=== PATIENT | male | born 1950 | race Caucasian/White ===

== ENCOUNTER → 2016-11-29 | Outpatient (CLI) | payer OTHER ==
[~2016-11-29] MED LIST: CALCCAP4 PO; HYDR1CAP85 PO; LUTE6CAP PO; MECL1CHW4 PO; MULT-506 PO; OMEG12006 PO
[2016-11-29 14:53] LABS: BASO % 0.6 %; BASO ABS # 0.04 K/uL (0-0.2); COMPLETE YES; EOS % 4.1 %; HEMATOCRIT 42.1 % (42-52); IG% 0.2 %; LYMPH % 20.5 %; LYMPH ABS # 1.31 K/uL (1.2-3.4); MEAN CELL VOLUME 91.9 fL (80-100); MEAN CORPUSCULAR HEMOGLOBIN 31.7 pg (25-34); MEAN CORPUSCULAR HGB CONC 34.4 g/dl (32-36); MEAN PLATELET VOLUME 10.9 fL (7.4-10.4); MONO % 14.7 %; NEUT % 59.9 %; PLATELET COUNT 237 K/uL (130-400); RED BLOOD COUNT 4.58 M/uL (4.7-6.1)
[2016-11-29 15:22] LABS: BLOOD UREA NITROGEN 18 mg/dl (7-18); BUN/CREATININE RATIO 24.5 (10-20); CALCIUM 8.3 mg/dl (8.5-10.1); CARBON DIOXIDE 27 mmol/L (21-32); CHLORIDE 109 mmol/L (98-107); CREATININE 0.72 mg/dl (0.60-1.40); GLUCOSE 103 mg/dl (70-99); POTASSIUM 3.9 mmol/L (3.5-5.1); SODIUM 142 mmol/L (136-145)
[2016-11-29 15:33] LABS: THYROID STIMULATING HORMONE 0.481 uIu/ml (0.300-4.500)
[2016-11-29 16:16] LABS: LYME DISEASE AB IGG NEG (NEG); LYME DISEASE AB IGM NEG (NEG)
== END | disposition home or self-care (01) ==
LOC: C.LAB 12:48
PROVIDERS: ATTEND Internal Medicine Geriatric Medicine
DX: Z00.00 Encounter for general adult medical examination without abnormal findings (principal); Z51.81 Encounter for therapeutic drug level monitoring; M81.0 Age-related osteoporosis without current pathological fracture; Z79.01 Long term (current) use of anticoagulants; I80.3 Phlebitis and thrombophlebitis of lower extremities, unspecified; W57.XXXA Bitten or stung by nonvenomous insect and other nonvenomous arthropods, initial encounter

== ENCOUNTER → 2017-01-06 | Outpatient (CLI) | payer OTHER ==
[2017-01-06 14:20] LABS: BLOOD UREA NITROGEN 13 mg/dl (7-18); BUN/CREATININE RATIO 17.6 (10-20); CALCIUM 8.5 mg/dl (8.5-10.1); CARBON DIOXIDE 25 mmol/L (21-32); CHLORIDE 107 mmol/L (98-107); CREATININE 0.75 mg/dl (0.60-1.40); GLUCOSE 93 mg/dl (70-99); MAGNESIUM 2.3 mg/dl (1.8-2.4); POTASSIUM 4.3 mmol/L (3.5-5.1); SODIUM 139 mmol/L (136-145)
[2017-01-06 14:25] LABS: PHOSPHORUS 3.1 mg/dl (2.5-4.9)
== END | disposition home or self-care (01) ==
LOC: C.LABBC 10:34
PROVIDERS: ATTEND Internal Medicine Geriatric Medicine
DX: Z00.00 Encounter for general adult medical examination without abnormal findings (principal); M81.0 Age-related osteoporosis without current pathological fracture; E83.51 Hypocalcemia; M62.81 Muscle weakness (generalized)

== ENCOUNTER → 2017-02-08 | Outpatient (CLI) | payer OTHER | END | disposition home or self-care (01) | LOC: C.MAMM 11:14 | PROVIDERS: ATTEND Internal Medicine Geriatric Medicine | DX: M81.0 Age-related osteoporosis without current pathological fracture (principal) ==

== ENCOUNTER 2022-05-11 14:06 | Inpatient (IN) ==
[2022-05-11] MEDS ORDERED: ONDANSETRON INJ 2 MG/ML 2 ML VIAL IV STA (14:15)
[2022-05-11] MEDS ORDERED: SODIUM CHLORIDE 0.9% 1000ML 1,000 ML IV STA (14:15)
[2022-05-11] MEDS ORDERED: cefOXitin 2,000 MG/60 ML BAG IV STA (14:15)
--- NOTE | 2022-05-11 14:30 | Emergency Department Note ---
Impression & Plan SBO (small bowel obstruction), Vomiting ED Provider Note NAME: ANGIE LONDONO AGE: 71 SEX: M : 1950 ARRIVES VIA: Walk-In INFORMANT: Patient, ED PROVIDER(S): Jimmie Kaur DO CHIEF COMPLAINT: Diarrhea HPI: The patient is a 71-year-old male who presented to the emergency department for an evaluation of the diarrhea. The patient is noted some nausea but no specific vomiting. He is noticed mild abdominal distention. He denies having any fever. He denies having any chest pain or difficulty breathing. He called his primary care physician with these complaints and was sent for a CAT scan of the abdomen and pelvis. He was told to go to the emergency department because of the possibility of C. difficile. The patient tested positive for C. difficile in March of this year. He was treated with a 10-day course of vancomycin. When he started having loose bowel movements again he thought it was possible that the C. difficile has returned. The patient denies having any previous surgeries on his abdomen. He denies having any fever or headache. ROS: See above HPI for pertinent positives & negatives. A total of 10 systems reviewed and were otherwise negative. PAST MEDICAL HISTORY: See Below PAST SURGICAL HISTORY: See Below FAMILY HISTORY: See Below SOCIAL HISTORY: See Below HOME MEDICATIONS: See Below ALLERGIES: See Below VITALS: See Below PHYSICAL EXAMINATION: GENERAL: Patient is awake alert in no acute distress patient is resting comfortably and showing no signs of anxiety EYES: The conjunctivae are clear. The pupils are round and reactive. EARS, NOSE, MOUTH AND THROAT: The nose is without any evidence of any deformity. Mucous membranes are moist. Tongue is midline. NECK: The neck is nontender and supple. RESPIRATORY: Normal respiratory effort is noted there is no evidence of wheezing rhonchi or rales CARDIOVASCULAR: Regular rate and rhythm noted there no murmurs rubs or gallops normal S1 normal S2. GASTROINTESTINAL: The abdomen is distended but nontender. There is no guarding rigidity appreciated. MUSCULOSKELETAL/EXTREMITIES: There is no evidence of gross deformity full range of motion is noted in the hips and shoulders. SKIN: There is no obvious evidence of any rash. There are no petechiae, pallor or cyanosis noted. NEUROLOGIC: Patient is awake alert and oriented x3. Gait was steady. MEDICAL DECISION MAKING: The patient is a 71-year-old male who presented to the emergency department for an evaluation of abdominal complaints as well as diarrhea. The patient was recently diagnosed with C. difficile colitis. He was treated with a full course of vancomycin orally. The patient started having loose bowel movements again and had a CT ordered as an outpatient by his primary care physician. The CT appears to be consistent with a bowel obstruction. The patient was sent to the emergency department for further evaluation. I discussed the patient's laboratory and radiographic studies with him. I did independently review the patient's CT that was obtained this morning. I discussed the patient's conditi on with the on-call general surgeon. The [facility] hospitalist was also notified about the patient. The patient was treated with IV fluids and IV antibiotics. He also had an NG tube placed by nursing. He did have an episode of emesis. The patient had a very dilated gastric shadow on CT. I do feel the patient's condition could benefit from NG tube to suction. Triage Nursing notes reviewed. Prior medical records reviewed Vital Signs: reviewed and remarkable for no significant abnormalities Differential diagnosis: Gastroenteritis, food borne illness, infections, diverticulitis, inflammatory bowel disease, obstruction, GI bleed, biliary pathology, volvulus, as well as other pathologies. ER treatment provided: See below Diagnostics interpreted by me: ECG: EKG was obtained in the emergency department. My interpretation is normal sinus rhythm at 75 bpm. There is no ectopy. Poor R wave progression was noted. There is a nonspecific interventricular conduction delay. No previous tracing was available. Cardiac Monitoring: An order was placed for continuous cardiac monitoring. The monitor shows a rate of 71 bpm with sinus rhythm. Laboratory studies: As stated above and show below. Imaging studies: See below. Radiographic imaging was reviewed by myself Consultation(s): I discussed this case with Esther Bradley who is on-call for general surgery. Dr. Maurer was notified about the patient. He will evaluate the patient in the emergency department. Past Med/Surg History Medical History Allergic rhinitis BPH (benign prostatic hyperplasia) C. difficile colitis (~03/2022) Cyst of finger GERD (gastroesophageal reflux disease) Hypotension Low back pain bulging lumbar disc Near syncope Osteoarthritis Osteoporosis Osteopenia on a bone density summer 2020 T-score of -2.1 Right wrist pain Sensorineural hearing loss of both ears Sleep apnea mild, no device Superficial thrombophlebitis lower right leg Using aspirin 81 mg daily Testicular pain Tinnitus, bilateral Surgical History H/O colonoscopy History of esophagogastroduodenoscopy (EGD) History of removal of cyst left hand, on finger---under local Family History Mother Hypertension Brother Macular degeneration Grandfather (Maternal) Family history of diabetes mellitus Family hx of colon cancer Other No family history of adverse response to anesthesia Denies family history of Ovarian cancer Prostate cancer Myocardial infarction Breast cancer Social History Smoking Status: Never smoker Second Hand Exposure: No (father smoked); Hx Alcohol Use: Yes Alcohol type: beer and wine Alcohol Intake Frequency Comment: 1/day Hx Substance Use: No Preferred Language: Malawian Communication Ability: Effective Visual Impairment: No Limitations Hearing Ability: Normal [employer] Supervisor Required: No Beliefs That Will Affect Care: None marital status: Current Living Situation: Spouse current occupational status: retired Feels Safe at Home: Yes Childhood Exposure to Second-Hand Smoke: Yes Dental Care, Regularly: Yes Physical Activity Frequency: Daily Physical Activity Frequency Comment: walk or back exercises Seatbelt Use: always Sunscreen Use: Yes Assistive Devices: Glasses Allergies Allergies Allergy/AdvReac Type Severity Reaction Status Date / Time No Known Allergies Allergy Verified 04/19/22 13:58 Home Meds Home Medications Medication Instructions Recorded Confirmed ascorbic acid (vitamin C) 500 mg 500 mg PO QPM 11/25/17 04/19/22 tablet (Vitamin C) aspirin 81 mg tablet,delayed 81 mg PO QAM 11/25/17 04/19/22 release (Aspir-) lutein 6 mg tablet 6 mg PO BID 11/25/17 04/19/22 multivitamin 1 tab PO QDL 11/25/17 04/19/22 omega 0-loi-oqp-fish oil 1,000 mg 1,000 mg PO QDL 11/25/17 04/19/22 (120 mg-180 mg) capsule (Fish Oil) fluticasone propionate 50 1 sprays intranasal HS 03/31/19 04/19/22 mcg/actuation nasal spray,suspension hydroxyzine pamoate 25 mg capsule 25 mg PO HS PRN Itching 04/06/19 04/19/22 (Vistaril) methylcellulose (with sugar) oral 1 tbsp PO QAM 04/06/19 04/19/22 powder (Citrucel (sucrose) oral powder) [id number]-[id number] comb 40 cap PO BID 01/14/20 04/19/22 mg-17 mcg-10 mg-63 mg-33mg capsule (Urinozinc Prostate Formula) cholecalciferol (vitamin D3) 50 2,000 unit PO DAILY 10/23/20 04/19/22 mcg (2,000 unit) tablet mecobalamin (vitamin B12) 1,000 1,000 mcg sublingual DAILY 10/23/20 04/19/22 mcg disintegrating tablet,sublingual calcium carbonate 600 mg calcium 600 mg PO BID 01/12/22 04/19/22 (1,500 mg) tablet (Calcium) vyfywdbh-myi-oferny 5 mg-zeaxanth cap PO 01/12/22 04/19/22 1 mg-bilberry 7.5 mg-herbal capsule (Macular Health Formula) Previous Rx's Medication Instructions Recorded tadalafil 5 mg tablet 5 mg PO DAILY #30 tabs 02/17/22 Lactobacillus acidophilus 1 1,000 mmu cells PO DAILY #30 caps 04/19/22 billion cell capsule vancomycin 125 mg capsule 125 mg PO QID 14 days #56 caps 05/11/22 Results & Data (ED) Vital Signs Vital Signs - 24 hr 05/11/22 14:08 05/11/22 15:16 05/11/22 15:16 Temperature 36.7 C Temperature Source Oral Pulse Rate 88 Pulse Rate [Apical] 71 Respiratory Rate 21 18 Respiratory Effort / Characteristics Non-Labored Non-Labored Respiratory Depth Normal Normal Respiratory Pattern Regular Blood Pressure 122/83 Blood Pressure [Right Arm] 118/78 Blood Pressure Mean 96 Blood Pressure Mean [Right Arm] 91 Pulse Oximetry 94 94 95 Oxygen Delivery Method Room Air Room Air Room Air Sepsis Recent Fever Within 48 Hours No Sepsis New/Unexplained Change in Mental Status N/A Sepsis Action Taken by Nursing No Action Required Home Medications Current Medication List: was personally reviewed by me Laboratory Data Attestation: I reviewed the patient's lab results. 05/11/22 14:30 05/11/22 14:30 Lab Results 05/11/22 05/11/22 05/11/22 Range/Units 14:30 14:30 14:30 WBC 6.79 (4.8-10.8) K/ul RBC 5.09 (4.70-6.10) M/uL Hgb 16.1 (14.0-18.0) g/dl Hct 47.4 (42.0-52.0) % MCV 93.1 (80.0-100.0) fL MCH 31.6 (25.0-34.0) pg MCHC 34.0 (32.0-36.0) g/dL RDW Std Deviation 46.5 H (36.4-46.3) fL RDW Coeff of [place] 13.5 (11.5-14.5) % Plt Count 231 (130-400) K/uL MPV 10.4 (9.4-12.4) fL Immature Gran % (Auto) 0.1 % Neut % (Auto) 72.4 % Lymph % (Auto) 11.9 % [place] % (Auto) 14.7 % Eos % (Auto) 0.3 % Baso % (Auto) 0.6 % Neut # (Auto) 4.91 (1.40-6.50) K/uL Lymph # (Auto) 0.81 L (1.2-3.4) K/uL [place] # (Auto) 1.00 H (0.11-0.59) K/uL Eos # (Auto) 0.02 (0-0.50) K/uL Baso # (Auto) 0.04 (0-0.2) K/uL Immature Gran # (Auto) 0.01 (0.01-0.20) K/uL PT 11.4 (9.0-12.0) Seconds INR 1.1 (0.9-1.1) APTT 31.2 H (21.0-31.0) Seconds PTT Ratio 1.1 Sodium 140 (136-145) mmol/L Potassium 3.8 (3.5-5.1) mmol/L Chloride 112 H (98-107) mmol/L Carbon Dioxide 19 L (21-32) mmol/L Anion Gap 9 (3-11) BUN 14 (6-23) mg/dl Creatinine 0.73 (0.6-1.4) mg/dl Est Cr Clr Drug Dosing 87.2 ml/min Est GFR ( Amer) 108.2 ml/min Est GFR (Non-Af Amer) 93.3 ml/min BUN/Creatinine Ratio 19.2 (10-20) Glucose 120 H (70-99(Fasting)) mg/dl Calcium 8.3 L (8.5-10.1) mg/dl Total Bilirubin 1.7 H (0.2-1.0) mg/dl AST 21 (13-39) U/L ALT 22 (7-52) U/L Alkaline Phosphatase 69 (34-104) U/L Troponin I High Sens 2.3 (0-20) pg/ml Total Protein 7.3 (6.0-8.3) gm/dl Albumin 4.4 (3.4-5.0) gm/dl Globulin 2.9 (2.5-4.0) gm/dl Albumin/Globulin Ratio 1.5 (0.9-2) Lipase 17 (11-82) U/L Administered Medications Discontinued Medications Sodium Chloride (Nss 1000ml) 1,000 mls @ 999 mls/hr IV .Q1H1M STA Stop: 05/11/22 15:15 Last Admin: 05/11/22 14:47 Dose: 999 mls/hr Documented By: OLAYINKA Cefoxitin Sodium (Mefoxin) 2,000 mg in 60 mls @ 100 mls/hr IV NOW STA Stop: 05/11/22 14:50 Last Infusion: 05/11/22 15:23 Dose: 0 mls/hr Documented By: Admin: 05/11/22 14:47 Dose: 100 mls/hr Documented By: OLAYINKA Ondansetron HCl (Ondansetron Inj 2 Mg/Ml 2 Ml Vial) 4 mg IV NOW STA Stop: 05/11/22 14:16 Last Admin: 05/11/22 14:47 Dose: 4 mg Documented By: AP Imaging Data Attestation: I personally reviewed and interpreted this imaging study as follows: My Impression: 1 view chest x-ray was obtained in the emergency department. My interpretation is no free air no definite filtrate, NG tube was noted KUB was obtained in the emergency department. My interpretation is dilated small bowel, NG tube was noted, see final report below. Radiologist's Impression: Chest X-Ray 05/11/22 14:15 SINGLE VIEW CHEST CLINICAL HISTORY: Enteric tube placement. FINDINGS: An AP, portable, upright chest radiograph is obtained. No prior studies are available for comparison at the time of dictation. An enteric tube has been placed. The tip projects below the diaphragm and is not visualized. The heart is top normal for projection. Scarring/atelectasis is noted at both lung bases. No airspace consolidation or large pleural effusion is identified. No pneumothorax is seen. The skeletal structures are osteopenic. The bony thorax is grossly intact. IMPRESSION: 1. The lungs are clear. 2. An enteric tube has been placed as above. ACT 112: Negative or not required by law. Electronically signed by: Don Elizabeth M.D. 05/11/2022 3:20 PM KUB X-Ray 05/11/22 14:27 KUB HISTORY: NGT placement COMPARISON: Abdomen and pelvis CT 05/11/2022. FINDINGS: Nasogastric tube terminates in the mid stomach. This appears in good position. A small bladder diverticulum is noted. There is residual contrast within the bladder from the recent CT examination. No renal calculi. No ureteral calculi. Calcifications in the deep pelvis likely represent phleboliths. A few mildly dilated gas-filled loops of small bowel are again noted within the right upper quadrant consistent with a small bowel obstruction. No pneumoperitoneum or pneumatosis. IMPRESSION: 1. Nasogastric tube terminates in the stomach. 2. Small bowel obstruction pattern again noted. ACT 112: Negative or not required by law. Electronically signed by: Justino Davis M.D. 05/11/2022 3:19 PM The patient's CAT scan report from earlier today was reviewed. Patient: ANGIE LONDONO Admit Date: 05/11/22 MR#: [id number] Address1: [address] [place] [address] Acct ID:[id number] Address2: Date: 1950 [facility] Zip: [place] [id number] Age: 71 Location: CT Sex: M Room/Bed: Att Phy: Lyric Galindo MD Diagnosis: A04.72 - Enterocolitis due to Clostridium difficil Radha Phy: RV. Galdamez MD Service Date: 05/11/22 [facility] Phy: Interpreting Phy: Don Elizabeth MD Admit Phy: Ordering Phy: Lyric Galindo MD cc: ~ CT SCAN OF THE ABDOMEN AND PELVIS WITH IV CONTRAST CLINICAL HISTORY: C. Difficile colitis. COMPARISON STUDY: Abdominal radiograph dated 04/19/2022. TECHNIQUE: Following the IV administration of 86 cc of Optiray 350, CT scan of the abdomen and pelvis is performed from the lung bases to the proximal femora. Images are reviewed in the axial, sagittal, and coronal planes. IV contrast was administered without complication. A dose lowering technique was utilized adhering to the principles of ALARA. CT DOSE: 783.57 mGycm FINDINGS: Lung bases: The heart is top normal in size and without pericardial effusion. A 4 mm right lower lobe pulmonary nodule is seen on image #22 and 2 mm nodules are seen on images #18 and #24. The lung bases are otherwise clear noting bibasilar scarring/atelectasis. Liver: The contrast-enhanced liver is normal in size, contour, and attenuation. There is no intrahepatic biliary ductal dilatation. The hepatic veins and portal veins are patent. A subcentimeter left lobe hypodensity on image #40 likely represents a cyst but is too small for definitive characterization. Gallbladder: Unremarkable. Spleen: Normal in size and attenuation. Pancreas: Unremarkable. Adrenal glands: Unremarkable. Kidneys: The contrast enhanced kidneys are normal in size and without hydroneph rosis. The kidneys enhance symmetrically. Abdominal vasculature: The abdominal aorta is normal in course and caliber noting scattered foci of atherosclerotic calcification. Bowel: The stomach and proximal small bowel loops are distended and fluid- filled. Small bowel loops measure up to 3.3 cm in diameter. A transition point suggested in the right pelvis on image #318, and the distal small bowel and colon are decompressed. The appearance is consistent with a small bowel obstruction. No focally thick-walled bowel loops are identified. There is no pneumatosis intestinalis or portal venous gas. There is moderate to advanced colonic diverticulosis without CT evidence of acute diverticulitis. Liquid stool seen throughout the colon. There is no significant colonic wall thickening or surrounding inflammation. There is a large duodenal diverticulum. The appendix is well-visualized and normal. Peritoneum: There is no intraperitoneal free air or abdominal ascites. There is a large fat-containing umbilical hernia. Lymphadenopathy: None. Pelvic viscera: The prostate gland is markedly enlarged and heterogeneous noting median lobe hypertrophy. The bladder wall is thickened/trabeculated indicating chronic outlet obstruction. A 2 cm bladder diverticulum is noted on the right. There are bilateral fat-containing inguinal hernias. A small segment of bowel pooches into the right inguinal hernia. Skeletal structures: The skeletal structures are osteopenic. No lytic or blastic lesions are seen. IMPRESSION: 1. Findings are consistent with small bowel obstruction. A transition point is suggested in the right pelvis and this may be related to adhesions. Clinical correlation will be required. 2. Liquid stool seen throughout the colon. There is no colonic wall thickening or surrounding inflammation. 3. Moderate to advanced colonic diverticulosis without CT evidence of acute diverticulitis. 4. No intraperitoneal free air is identified. No thick-walled bowel loops are identified. There is no pneumatosis intestinalis or portal venous gas. 5. There are bilateral inguinal hernias. A segment of small bowel pooches into the right internal hernia. This does not represent the site of obstruction. 6. Additional findings as above. ACT 112: Negative or not required by law. Electronically signed by: Don Elizabeth M.D. 05/11/2022 12:40 PM Dictated: 05/11/22 122 Transcribed: 05/11/221225 Discharge Plan Visit Data Chief Complaint: GI Assessment Stated Complaint: REF BY DOC,INTESTINAL BLOCKAGE,INFECTION ED Provider: Jimmie Kaur Discharge Problem: SBO (small bowel obstruction), Vomiting Patient Disposition: Being Evaluated by Hospitalist Forms Stand Alone Forms: [facility] Prescriptions Prescriptions: No Action Urinozinc Prostate Formula 42-66-42-63-33 vb-jrm-ct-mg-mg capsule PO BID Lactobacillus acidophilus 1 billion cell capsule 1,000 mmu cells PO DAILY Qty: 30 0RF vancomycin 125 mg capsule 125 mg PO QID 14 Days Qty: 56 0RF fluticasone propionate 50 mcg/actuation spray,suspension 1 sprays INTNAS HS cholecalciferol (vitamin D3) 50 mcg (2,000 unit) tablet 2,000 unit PO DAILY tadalafil 5 mg tablet 5 mg PO DAILY Qty: 30 11RF mecobalamin (vitamin B12) 1,000 mcg tablet,disintegrating 1,000 mcg sublingual DAILY Rx Instructions: place tablet under tongue and allow to dissolve for at least30 secs before swallowing calcium carbonate [Calcium 600] 600 mg calcium (1,500 mg) tablet 600 mg PO BID Macular Health Formula 5-1-7.5 mg capsule PO multivitamin Tablet 1 tab PO QDL aspirin [Aspir-81] 81 mg Tablet,Delayed Release (Dr/Ec) 81 mg PO QAM ascorbic acid (vitamin C) [Vitamin C] 500 mg Tablet 500 mg PO QPM omega 9-vcb-zgg-fish oil [Fish Oil] 1,000 mg (120 mg-180 mg) Capsule 1,000 mg PO QDL lutein 6 mg Tablet 6 mg PO BID Citrucel (sucrose) Powder 1 tbsp PO QAM hydroxyzine pamoate [Vistaril] 25 mg capsule 25 mg PO HS PRN (Reason: Itching) Referrals Referrals: Zoe Purdy MD [Primary Care Provider] -
--- NOTE | 2022-05-11 15:21 | XRay Report ---
KUB HISTORY: NGT placement COMPARISON: Abdomen and pelvis CT 05/11/2022. FINDINGS: Nasogastric tube terminates in the mid stomach. This appears in good position. A small blad henry diverticulum is noted. There is residual contrast within the bladder from the recent CT examinati on. No renal calculi. No ureteral calculi. Calcifications in the deep pelvis likely represent phlebo liths. A few mildly dilated gas-filled loops of small bowel are again noted within the right upper qu adrant consistent with a small bowel obstruction. No pneumoperitoneum or pneumatosis. IMPRESSION: 1. Nasogastric tube terminates in the stomach. 2. Small bowel obstruction pattern again noted. ACT 112: Negative or not required by law. Electronically signed by: Justino Davis M.D. 05/11/2022 3:19 PM
--- NOTE | 2022-05-11 15:22 | XRay Report ---
SINGLE VIEW CHEST CLINICAL HISTORY: Enteric tube placement. FINDINGS: An AP, portable, upright chest radiograph is obtained. No prior studies are available for c omparison at the time of dictation. An enteric tube has been placed. The tip projects below the diaph ragm and is not visualized. The heart is top normal for projection. Scarring/atelectasis is noted at both lung bases. No airspace consolidation or large pleural effusion is identified. No pneumothorax i s seen. The skeletal structures are osteopenic. The bony thorax is grossly intact. IMPRESSION: 1. The lungs are clear. 2. An enteric tube has been placed as above. ACT 112: Negative or not required by law. Electronically signed by: Don Elizabeth M.D. 05/11/2022 3:20 PM
[2022-05-11 15:26] LABS: Albumin Globulin Ratio 1.5 (0.9-2); Albumin Level 4.4 gm/dl (3.4-5.0); BUN Creatinine Ratio 19.2 (10-20); Bilirubin,Total 1.7 mg/dl (0.2-1.0); Calcium 8.3 mg/dl (8.5-10.1); Creatinine Clr Calc Pharmacy 87.2 ml/min; Est GFR (African American) 108.2 ml/min; Est GFR (Non-African American) 93.3 ml/min; Globulin 2.9 gm/dl (2.5-4.0); Potassium 3.8 mmol/L (3.5-5.1); Total Protein 7.3 gm/dl (6.0-8.3)
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
[2022-05-11 15:31] LABS: Troponin I High Sensitivity 2.3 pg/ml (0-20)
[2022-05-11 15:32] LABS: Basophils # (auto) 0.04 K/uL (0-0.2); Basophils % (auto) 0.6 %; Eosinophils # (auto) 0.02 K/uL (0-0.50); Eosinophils % (auto) 0.3 %; Hematocrit (blood only) 47.4 % (42.0-52.0); Hemoglobin 16.1 g/dl (14.0-18.0); Immature Granulocytes # (auto) 0.01 K/uL (0.01-0.20); Immature Granulocytes % (auto) 0.1 %; Lymphocytes # (auto) 0.81 K/uL (1.2-3.4); Lymphocytes % (auto) 11.9 %; Mean Corpuscular Hemoglobin 31.6 pg (25.0-34.0); Mean Corpuscular Volume 93.1 fL (80.0-100.0); Mean Platelet Volume 10.4 fL (9.4-12.4); Monocytes % (auto) 14.7 %; Neutrophils # (auto) 4.91 K/uL (1.40-6.50); Neutrophils % (auto) 72.4 %; Platelet Count 231 K/uL (130-400); RDW Coefficient of Variation 13.5 % (11.5-14.5); RDW Standard Deviation 46.5 fL (36.4-46.3); Red Blood Count 5.09 M/uL (4.70-6.10); White Blood Count 6.79 K/ul (4.8-10.8)
[2022-05-11 15:41] LABS: INR 1.1 (0.9-1.1); Partial Thromboplastin Ratio 1.1; Partial Thromboplastin Time 31.2 Seconds (21.0-31.0); Prothrombin Time 11.4 Seconds (9.0-12.0)
--- NOTE | 2022-05-11 16:21 | History & Physical Report ---
Date of Service May 11, 2022 Assessment & Plan (1) SBO (small bowel obstruction): Plan: In pt w/ recent c. diff, no prior abdominal surgeries. 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 rec f/u w/ GI given family hx IBS, also needs c-scope for above (due currently) check TB/direct in AM Plan DVT Prophylaxis: Lovenox SQ History of Present Illness Chief Complaint: abdominal pain, diarrhea, SBO Primary Care Provider: Zoe Purdy MD 71yo male with PMHx significant for GERD, BPH, ED, hearing loss, NO PRIOR ABDOMINAL SURGERIES, recent cdiff gene testing presented after instruction of PCP for abdominal pain/nausea and found to have a small bowel obstruction and sent to ER for further eval. Recent events -- 04/19/22 presented to PCP w/ URI illness w/ fever/diarrhea/cough (COVID/FLU/RSV negative) and treated with Augmentin (HOWEVER PATIENT DOES NOT RECALL ANY ABX OUTSIDE OF PO VANCOMYCIN) and +cdiff gene (also noted slight elevated stool calprotectin) and completed 10 days PO Vancomycin on 04/29. Symptoms improved from that time but then last evening, developed diarrhea w/ generalized abdominal cramping/discomfort. Constant/mild in nature w/ 6-10 BMs in the past day with 1 episode of fecal incontinence. Diarrhea murky liquid/urgency but without blood or mucus. He reports sister/family with IBS but no crohns/colitis that he recalls. Typically when he has diarrhea symptoms cramping is resolved with a bowel movement. He reports last BM on arrival to ER, consistent w/ same color currently draining from NGT. Last meal last evening, ham pot pie. Mild nausea on arrival but no vomiting (exception until seen in ER w/ placement of NGT), which he reports has had significant improvement since placement but does note this to be uncomfortable/irritating. He notes he NEVER had any true PAIN, just cramping sensation. No night sweats/unexplained weight loss but he did report feeling cold last evening which is unusual for him. Last c-scope about 10 years ago and states he got a letter he is due but his PCP said based on current situation this may need to be moved up. In ER, already seen by general surgery. CTAP c/w SBO, transition point R pelvis and hoping to manage conservatively. Patient's daughter is Cruz, employee in [employer] department. He is ok w/ updating her with any questions/concerns. Allergies Allergy/AdvReac Type Severity Reaction Status Date / Time No Known Allergies Allergy Verified 05/11/22 16:17 Home Medications Medication Instructions Recorded Confirmed Type ascorbic acid (vitamin C) 500 mg 500 mg PO QPM 11/25/17 05/11/22 History tablet (Vitamin C) lutein 6 mg tablet 6 mg PO DAILY 11/25/17 05/11/22 History multivitamin 1 tab PO QDL 11/25/17 05/11/22 History omega 3-cwd-slr-fish oil 1,000 mg 1,000 mg PO QDL 11/25/17 05/11/22 History (120 mg-180 mg) capsule (Fish Oil) fluticasone propionate 50 1 sprays intranasal HS 03/31/19 05/11/22 History mcg/actuation nasal spray,suspension hydroxyzine pamoate 25 mg capsule 25 mg PO HS PRN Itching 04/06/19 05/11/22 History (Vistaril) methylcellulose (with sugar) oral 1 tbsp PO QAM 04/06/19 05/11/22 History powder (Citrucel (sucrose) oral powder) [id number] comb 40 1 cap PO BID 01/14/20 05/11/22 History mg-17 mcg-10 mg-63 mg-33mg capsule (Urinozinc Prostate Formula) cholecalciferol (vitamin D3) 50 2,000 unit PO DAILY 10/23/20 05/11/22 History mcg (2,000 unit) tablet mecobalamin (vitamin B12) 1,000 1,000 mcg sublingual DAILY 10/23/20 05/11/22 History mcg disintegrating tablet,sublingual calcium carbonate 600 mg calcium 600 mg PO BID 01/12/22 05/11/22 History (1,500 mg) tablet (Calcium) iokcewug-rui-dnxtpc 5 mg-zeaxanth 1 cap PO DAILY 01/12/22 05/11/22 History 1 mg-bilberry 7.5 mg-herbal capsule (Macular Health Formula) tadalafil 5 mg tablet 5 mg PO DAILY #30 tabs 02/17/22 05/11/22 Rx Lactobacillus acidophilus 1 1,000 mmu cells PO DAILY #30 caps 04/19/22 05/11/22 Rx billion cell capsule aspirin 81 mg tablet,delayed 81 mg PO DAILY 05/11/22 05/11/22 History release Past Med/Surg History Medical History Allergic rhinitis BPH (benign prostatic hyperplasia) C. difficile colitis (~03/2022) Cyst of finger GERD (gastroesophageal reflux disease) Hypotension Low back pain bulging lumbar disc Near syncope Osteoarthritis Osteoporosis Osteopenia on a bone density summer 2020 T-score of -2.1 Right wrist pain Sensorineural hearing loss of both ears Sleep apnea mild, no device Superficial thrombophlebitis lower right leg Using aspirin 81 mg daily Testicular pain Tinnitus, bilateral Surgical History H/O colonoscopy History of esophagogastroduodenoscopy (EGD) History of removal of cyst left hand, on finger---under local Family History Mother Hypertension Brother Macular degeneration Grandfather (Maternal) Family history of diabetes mellitus Family hx of colon cancer Other No family history of adverse response to anesthesia Denies family history of Ovarian cancer Prostate cancer Myocardial infarction Breast cancer Social History Smoking Status: Never smoker Second Hand Exposure: Yes (Pt stated this was a long time ago); Do You Dip or Chew Tobacco: No; Tobacco Cessation Education Requested by Patient: No Hx Alcohol Use: Yes Alcohol type: beer and wine Alcohol Intake Frequency Comment: 1/day Hx Substance Use: No Preferred Language: Lithuanian Communication Ability: Effective Visual Impairment: No Limitations Hearing Ability: Normal Project Intern Required: No Beliefs That Will Affect Care: None marital status: Current Living Situation: Spouse current occupational status: retired Other Information That Helps Us Care for You: No Feels Safe at Home: Yes Safety Concerns: Feels Safe At This Time Childhood Exposure to Second-Hand Smoke: Yes Dental Care, Regularly: Yes Physical Activity Frequency: Daily Physical Activity Frequency Comment: walk or back exercises Seatbelt Use: always Sunscreen Use: Yes Assistive Devices: None Physical Exam Physical Exam: General: WN/WD male sitting up in bed, book at bedside, NAD currently HEENT: head normocephalic, pupils equal in size, mm slightly dry, NTG draining murky/liquid brown, trachea midline Resp: CTAB, no w/c, on RA CV: RRR, no significant m/r/g, no pitting edema, pulses palpable GI: +BS RUQ/LUQ/LLQ but absent RLQ, +distension, nontender, no guarding/rigidity : no plata MSK/Neuro: no focal deficit Psych: AOx3, pleasant and cooperative Results & Data Results & Data ([facility]) Vital Signs (Past 12 Hours) Vital Signs Temp Pulse Pulse Resp BP BP Pulse Ox 05/11/22 15:16 71 18 118/78 95 05/11/22 15:16 94 05/11/22 14:08 36.7 C 88 21 122/83 94 O2 Del Method 05/11/22 15:16 Room Air 05/11/22 15:16 Room Air 05/11/22 14:08 Room Air Laboratory Results 05/11/22 05/11/22 05/11/22 Range/Units 14:30 14:30 14:30 WBC 6.79 (4.8-10.8) K/ul RBC 5.09 (4.70-6.10) M/uL Hgb 16.1 (14.0-18.0) g/dl Hct 47.4 (42.0-52.0) % MCV 93.1 (80.0-100.0) fL MCH 31.6 (25.0-34.0) pg MCHC 34.0 (32.0-36.0) g/dL RDW Std Deviation 46.5 H (36.4-46.3) fL RDW Coeff of [place] 13.5 (11.5-14.5) % Plt Count 231 (130-400) K/uL MPV 10.4 (9.4-12.4) fL Immature Gran % (Auto) 0.1 % Neut % (Auto) 72.4 % Lymph % (Auto) 11.9 % [place] % (Auto) 14.7 % Eos % (Auto) 0.3 % Baso % (Auto) 0.6 % Neut # (Auto) 4.91 (1.40-6.50) K/uL Lymph # (Auto) 0.81 L (1.2-3.4) K/uL [place] # (Auto) 1.00 H (0.11-0.59) K/uL Eos # (Auto) 0.02 (0-0.50) K/uL Baso # (Auto) 0.04 (0-0.2) K/uL Immature Gran # (Auto) 0.01 (0.01-0.20) K/uL PT 11.4 (9.0-12.0) Seconds INR 1.1 (0.9-1.1) APTT 31.2 H (21.0-31.0) Seconds PTT Ratio 1.1 Sodium 140 (136-145) mmol/L Potassium 3.8 (3.5-5.1) mmol/L Chloride 112 H (98-107) mmol/L Carbon Dioxide 19 L (21-32) mmol/L Anion Gap 9 (3-11) BUN 14 (6-23) mg/dl Creatinine 0.73 (0.6-1.4) mg/dl Est Cr Clr Drug Dosing 87.2 ml/min Est GFR ( Amer) 108.2 ml/min Est GFR (Non-Af Amer) 93.3 ml/min BUN/Creatinine Ratio 19.2 (10-20) Glucose 120 H (70-99(Fasting)) mg/dl Calcium 8.3 L (8.5-10.1) mg/dl Total Bilirubin 1.7 H (0.2-1.0) mg/dl AST 21 (13-39) U/L ALT 22 (7-52) U/L Alkaline Phosphatase 69 (34-104) U/L Troponin I High Sens 2.3 (0-20) pg/ml Total Protein 7.3 (6.0-8.3) gm/dl Albumin 4.4 (3.4-5.0) gm/dl Globulin 2.9 (2.5-4.0) gm/dl Albumin/Globulin Ratio 1.5 (0.9-2) Lipase 17 (11-82) U/L SARS-CoV-2, RNA, NAAT (NEGATIVE) 05/11/22 Range/Units 14:25 WBC (4.8-10.8) K/ul RBC (4.70-6.10) M/uL Hgb (14.0-18.0) g/dl Hct (42.0-52.0) % MCV (80.0-100.0) fL MCH (25.0-34.0) pg MCHC (32.0-36.0) g/dL RDW Std Deviation (36.4-46.3) fL RDW Coeff of [place] (11.5-14.5) % Plt Count (130-400) K/uL MPV (9.4-12.4) fL Immature Gran % (Auto) % Neut % (Auto) % Lymph % (Auto) % [place] % (Auto) % Eos % (Auto) % Baso % (Auto) % Neut # (Auto) (1.40-6.50) K/uL Lymph # (Auto) (1.2-3.4) K/uL [place] # (Auto) (0.11-0.59) K/uL Eos # (Auto) (0-0.50) K/uL Baso # (Auto) (0-0.2) K/uL Immature Gran # (Auto) (0.01-0.20) K/uL PT (9.0-12.0) Seconds INR (0.9-1.1) APTT (21.0-31.0) Seconds PTT Ratio Sodium (136-145) mmol/L Potassium (3.5-5.1) mmol/L Chloride (98-107) mmol/L Carbon Dioxide (21-32) mmol/L Anion Gap (3-11) BUN (6-23) mg/dl Creatinine (0.6-1.4) mg/dl Est Cr Clr Drug Dosing ml/min Est GFR ( Amer) ml/min Est GFR (Non-Af Amer) ml/min BUN/Creatinine Ratio (10-20) Glucose (70-99(Fasting)) mg/dl Calcium (8.5-10.1) mg/dl Total Bilirubin (0.2-1.0) mg/dl AST (13-39) U/L ALT (7-52) U/L Alkaline Phosphatase (34-104) U/L Troponin I High Sens (0-20) pg/ml Total Protein (6.0-8.3) gm/dl Albumin (3.4-5.0) gm/dl Globulin (2.5-4.0) gm/dl Albumin/Globulin Ratio (0.9-2) Lipase (11-82) U/L SARS-CoV-2, RNA, NAAT NEGATIVE (NEGATIVE) Diagnostic Findings CT SCAN OF THE ABDOMEN AND PELVIS WITH IV CONTRAST CLINICAL HISTORY: C. Difficile colitis. COMPARISON STUDY: Abdominal radiograph dated 04/19/2022. TECHNIQUE: Following the IV administration of 86 cc of Optiray 350, CT scan of the abdomen and pelvis is performed from the lung bases to the proximal femora. Images are reviewed in the axial, sagittal, and coronal planes. IV contrast was administered without complication. A dose lowering technique was utilized adhering to the principles of ALARA. CT DOSE: 783.57 mGycm FINDINGS: Lung bases: The heart is top normal in size and without pericardial effusion. A 4 mm right lower lobe pulmonary nodule is seen on image #22 and 2 mm nodules are seen on images #18 and #24. The lung bases are otherwise clear noting bibasilar scarring/atelectasis. Liver: The contrast-enhanced liver is normal in size, contour, and attenuation. There is no intrahepatic biliary ductal dilatation. The hepatic veins and portal veins are patent. A subcentimeter left lobe hypodensity on image #40 likely represents a cyst but is too small for definitive characterization. Gallbladder: Unremarkable. Spleen: Normal in size and attenuation. Pancreas: Unremarkable. Adrenal glands: Unremarkable. Kidneys: The contrast enhanced kidneys are normal in size and without hydronephrosis. The kidneys enhance symmetrically. Abdominal vasculature: The abdominal aorta is normal in course and caliber noting scattered foci of atherosclerotic calcification. Bowel: The stomach and proximal small bowel loops are distended and fluid- filled. Small bowel loops measure up to 3.3 cm in diameter. A transition point suggested in the right pelvis on image #318, and the distal small bowel and colon are decompressed. The appearance is consistent with a small bowel obstruction. No focally thick-walled bowel loops are identified. There is no pneumatosis intestinalis or portal venous gas. There is moderate to advanced colonic diverticulosis without CT evidence of acute diverticulitis. Liquid stool seen throughout the colon. There is no significant colonic wall thickening or surrounding inflammation. There is a large duodenal diverticulum. The appendix is well-visualized and normal. Peritoneum: There is no intraperitoneal free air or abdominal ascites. There is a large fat-containing umbilical hernia. Lymphadenopathy: None. Pelvic viscera: The prostate gland is markedly enlarged and heterogeneous noting median lobe hypertrophy. The bladder wall is thickened/trabeculated indicating chronic outlet obstruction. A 2 cm bladder diverticulum is noted on the right. There are bilateral fat-containing inguinal hernias. A small segment of bowel pooches into the right inguinal hernia. Skeletal structures: The skeletal structures are osteopenic. No lytic or blastic lesions are seen. IMPRESSION: 1. Findings are consistent with small bowel obstruction. A transition point is suggested in the right pelvis and this may be related to adhesions. Clinical correlation will be required. 2. Liquid stool seen throughout the colon. There is no colonic wall thickening or surrounding inflammation. 3. Moderate to advanced colonic diverticulosis without CT evidence of acute diverticulitis. 4. No intraperitoneal free air is identified. No thick-walled bowel loops are identified. There is no pneumatosis intestinalis or portal venous gas. 5. There are bilateral inguinal hernias. A segment of small bowel pooches into the right internal hernia. This does not represent the site of obstruction. 6. Additional findings as above. ACT 112: Negative or not required by law. Electronically signed by: Don Elizabeth M.D. 05/11/2022 12:40 PM Dictated:05/11/221225 Transcribed: 05/11/221225 Chest X-Ray 05/11/22 14:15 SINGLE VIEW CHEST CLINICAL HISTORY: Enteric tube placement. FINDINGS: An AP, portable, upright chest radiograph is obtained. No prior studies are available for comparison at the time of dictation. An enteric tube has been placed. The tip projects below the diaphragm and is not visualized. The heart is top normal for projection. Scarring/atelectasis is noted at both lung bases. No airspace consolidation or large pleural effusion is identified. No pneumothorax is seen. The skeletal structures are osteopenic. The bony thorax is grossly intact. IMPRESSION: 1. The lungs are clear. 2. An enteric tube has been placed as above. ACT 112: Negative or not required by law. Electronically signed by: Don Elizabeth M.D. 05/11/2022 3:20 PM KUB X-Ray 05/11/22 14:27 KUB HISTORY: NGT placement COMPARISON: Abdomen and pelvis CT 05/11/2022. FINDINGS: Nasogastric tube terminates in the mid stomach. This appears in good position. A small bladder diverticulum is noted. There is residual contrast within the bladder from the recent CT examination. No renal calculi. No ureteral calculi. Calcifications in the deep pelvis likely represent phleboliths. A few mildly dilated gas-filled loops of small bowel are again noted within the right upper quadrant consistent with a small bowel obstruction. No pneumoperitoneum or pneumatosis. IMPRESSION: 1. Nasogastric tube terminates in the stomach. 2. Small bowel obstruction pattern again noted. ACT 112: Negative or not required by law. Electronically signed by: Justino Davis M.D. 05/11/2022 3:19 PM Supervising Physician Co-Signing Physician Notes I personally saw and examined the patient. I verified all aguirre points and agree with Eve Andres PA-C with the following exceptions and/or additions: 71 year old presents to the ER with diarrhea on advice from his PCP after outpatient CT showing small bowel obstruction and liquid stool in his colon O/E HS RRR, no murmurs, Chest CTAB, Abdo SNT, non distended, NG tube in place with minimal output. A/P SBO - NG tube, IV fluids (switch NSS to LR given bicarb 19 and chloride 112), NPO. Unclear cause as no prior abdominal surgeries Not clear initial episode in Mar was c. diff as toxin negative and moderate stool on KUB which would be unusual for this. He improved on vancomycin but if having overflow diarrhea may have just improved without intervention. Doubtful current episode is c. diff given lack of WBC and unusual this would cause SBO. Certainly if not improving would consider treatment but I do not feel this is necessary on admission. PG Care Time/CCT Total # of Minutes Spent Total Time Spent with Patient: Total time spent is greater than 50% in coordination of care (as documented) at patient's floor/unit and/or counseling patient: Coding Level of Care Code 84370 INT INP/OBS CARE 375MIN Diagnoses SBO (small bowel obstruction) K56.609 C. difficile colitis A04.72 Vomiting R11.2 Nausea presence: with nausea Vomiting type: unspecified Elevated bilirubin R17 (3) Vomiting Nausea presence: with nausea Vomiting type: unspecified Qualified Code(s): R11.2 - Nausea with vomiting, unspecified
[2022-05-11] MEDS ORDERED: ONDANSETRON INJ 2 MG/ML 2 ML VIAL IV PRN (19:45)
[2022-05-11] MEDS ORDERED: MoRPHine SULFATE 2 MG/ML CARP IV PRN ×2 (19:45)
[2022-05-11] MEDS ORDERED: ACETAMINOPHEN 1,000 MG/100 ML VIAL IV PRN (19:45)
[2022-05-11 20:05] LABS: Appearance Urine Clear (Clear); Bacteria Urine Automated Negative (Negative); Bilirubin Urine Negative (Negative); Blood Urine Negative (Negative); Color Urine Yellow; Glucose Urine UA Negative (Negative); Ketones Urine 1+ (Negative); Leukocyte Esterase Urine Negative (Negative); Nitrite Urine Negative (Negative); Protein Urine Trace (Negative); Specific Gravity Urine > 1.045 (1.000-1.030); Urobilinogen Urine Negative (Negative)
[2022-05-11] MEDS: LACTATED RINGER'S 1,000 ML IV SCH (20:15)
[2022-05-11 20:34] LABS: Cdiff Toxin B Gene (2yr or >) Positive Cdiff Gene (Neg)
[2022-05-11] MEDS ORDERED: CHLORASEPTIC 1.4% SOLN 180 ML BTL MT PRN (20:37)
[2022-05-11] MEDS: FAMOTIDINE 20 MG in SYRINGE 3 ML IV SCH (21:07)
[2022-05-11] MEDS: ENOXAPARIN INJ 40 MG/0.4 ML SYR SQ SCH (21:07)
[2022-05-11 21:14] LABS: Cdiff Antigen Negative; Cdiff Toxin A+B Negative Cdiff Toxin (Negative)
[2022-05-12] MEDS: LACTATED RINGER'S 1,000 ML IV SCH ×2 (03:42→12:59)
[2022-05-12] MEDS: FAMOTIDINE 20 MG in SYRINGE 3 ML IV SCH (08:21)
[2022-05-12 08:57] LABS: Base Excess VBG -1.7 mEq/L; HCO3 VBG 23 mmol/L; Oxygen Saturation VBG 95.2 %; PCO2 VBG 38 mmHg (38-50); PO2 VBG 65 mmHg; pH VBG 7.39 (7.36-7.41)
[2022-05-12 09:05] LABS: Basophils # (auto) 0.05 K/uL (0-0.2); Basophils % (auto) 0.9 %; Eosinophils # (auto) 0.04 K/uL (0-0.50); Eosinophils % (auto) 0.7 %; Hematocrit (blood only) 42.6 % (42.0-52.0); Hemoglobin 14.6 g/dl (14.0-18.0); Immature Granulocytes # (auto) 0.01 K/uL (0.01-0.20); Immature Granulocytes % (auto) 0.2 %; Lymphocytes # (auto) 0.92 K/uL (1.2-3.4); Lymphocytes % (auto) 16.2 %; Mean Corpuscular Hemoglobin 31.9 pg (25.0-34.0); Mean Corpuscular Hgb Conc 34.3 g/dL (32.0-36.0); Monocytes # (auto) 0.83 K/uL (0.11-0.59); Monocytes % (auto) 14.6 %; Neutrophils # (auto) 3.84 K/uL (1.40-6.50); Neutrophils % (auto) 67.4 %; Platelet Count 200 K/uL (130-400); RDW Coefficient of Variation 13.7 % (11.5-14.5); RDW Standard Deviation 46.5 fL (36.4-46.3); Red Blood Count 4.58 M/uL (4.70-6.10); White Blood Count 5.69 K/ul (4.8-10.8)
[2022-05-12 09:21] LABS: Albumin Level 3.6 gm/dl (3.4-5.0); BUN Creatinine Ratio 17.5 (10-20); Bilirubin Direct 0.3 mg/dl (0-0.2); Bilirubin,Total 1.4 mg/dl (0.2-1.0); Calcium 7.7 mg/dl (8.5-10.1); Est GFR (African American) 114.9 ml/min; Est GFR (Non-African American) 99.1 ml/min; Magnesium 1.9 mg/dl (1.7-2.4); Potassium 3.8 mmol/L (3.5-5.1)
--- NOTE | 2022-05-12 12:06 | XRay Report ---
KUB CLINICAL HISTORY: f/u SBO COMPARISON STUDY: CT of the abdomen and pelvis and KUB May 11, 2022. FINDINGS: The tip of the nasogastric tube projects over the gastric cardia. The tube could be advance d an additional 6 cm. Small amount of residual contrast within the bladder is present. Several loops of mildly dilated small bowel are present. These have decreased since CT of May 11, 2022. IMPRESSION: 1. Findings suggestive of a persistent partial small bowel obstruction. Small bowel dilatation decrea sed since prior CT. 2. Tip of nasogastric tube projects over the gastric cardia. The tube could be advanced an additional 6 cm. ACT 112: Negative or not required by law. Electronically signed by: Ryan aCmeron M.D. 05/12/2022 12:05 PM
--- NOTE | 2022-05-12 13:49 | Surgery Progress Note ---
I saw this patient with the PA and devised the plan. Date of Service May 12, 2022 Assessment & Plan (1) SBO (small bowel obstruction): Plan: patient here with concern for SBO on CT scan and diarrhea cdiff gene +, but toxin (-), not on abx currently NGT in place this AM with minimal output overnight...he denies any abdominal complaints currently. abdomen soft/nontender passing gas when he has diarrhea, but it's improving KUB this AM showed improving sb dilation NGT has since inadvertently fallen out, but we were going to perform a clamp trial anyway in hopes it could be pulled will start clears for now and see how he fairs Admission and Anticipated Discharge Date Admission Date: May 11, 2022 Subjective Patient denies any abdominal pain or nausea this AM. His diarrhea is slowing down and he is passing some flatus with this. Physical Exam Physical Exam: awake/alert, no distress Respiratory: normal respiratory effort Gastrointestinal (Abdomen): Inspection/Auscultation: abdomen not distended Percussion/Palpation: abdomen soft; abdomen nontender Results & Data Vital Signs (Past 12 Hours) Vital Signs Temp Pulse Resp BP Pulse Ox O2 Del Method 05/12/22 07:04 36.6 C 65 18 132/81 96 Room Air PG Care Time/CCT Total # of Minutes Spent Total Time Spent with Patient: Total time spent is greater than 50% in coordination of care (as documented) at patient's floor/unit and/or counseling patient: Coding Level of Care Code 98222 SUB INP/OBS CARE 03/24MIN Diagnoses SBO (small bowel obstruction) K56.609
--- NOTE | 2022-05-12 14:30 | Hospitalist Progress Note ---
Date of Service May 12, 2022 Assessment & Plan (1) SBO (small bowel obstruction): Plan: Improved. Passing flatus/stool; no vomiting or nausea. NG tube is out. KUB x-rays improved bowel gas pattern. Appreciate gen surg input. Clear liquid diet ordered by gen surg. Lower fluid rate from 125cc/hr to 75cc/hr. I did an extensive literature search - no direct correlation between recent c diff infection and development of SBO. There are reports of people with ileostomy or Crohn's disease or other chronic GI tract disorders/abnormal anatomy developing small bowel enteritis from c diff. However, no reports of SBO as complication of straight-forward c diff infection. Corresponded informally with 2 GI providers who report never seeing SBO in the setting of C diff infection. Further, with a clear/defined transition point seen on CT, this would argue for a specific nidus causing the SBO (adhesion, intrinsic bowel lesion, etc). It is concerning that he developed the SBO despite no past h/o intra-abdominal surgery. Consider upper GI series with SBFT to look at anatomy? Push enteroscopy down the line to look for small bowel lesions? Other? after discharge will recommend GI consultation for additional work-up as this gentleman's case is quite unusual. (2) C. difficile colitis: Plan: c diff gene + but toxin negative earlier in March but did receive 10-day course of PO vanco with resolution of diarrhea. Despite toxin negative status his clinical picture was quite c/w c diff infection (course of augmentin followed by SEVERE diarrhea illness). he remains c diff gene + but again toxin negative here. stool today was formed by his report. hold off on retreatment for "relapse" unless he develops severe diarrhea again. see #1 for additional information. cont contact precautions. labs in am. (3) Vomiting: Plan: 2nd #1 resolved NG tube is out (4) Elevated bilirubin: Plan: Chronic. highly suggestive of Gilbert's syndrome. direct bili is wnl - also suggestive of Gilbert's. no Rx needed. (5) BPH NOS w ur obs/LUTS: Plan: patient reports heavily bothersome LUTS consider alpha lucrecia Rx will discuss with him recent CT a/p with large prostate and signs of chronic bladder outlet obstruction Plan DVT Prophylaxis: Lovenox SQ updated pt's daughter Cruz by phone this evening of note - last colonoscopy was 09/2012 - no polyps, diverticulosis only, repeat advised 10 years will recommend he have another one in light of #1, #2 later this spring Admission and Anticipated Discharge Date Admission Date: May 11, 2022 Subjective NG tube inadvertently was lost this am however, since NG tube discontinuation, he has had no worsening nausea/emesis/abd pain/abd bloating he IS passing flatus and had a small, formed stool this am patient reports that over the last ~6 months he has had fluctuating stool calibre - often times small balls of stool, other times liquid stool last colonoscopy was ~10 years ago states that his URI he had in early March is fully resolved he was treated with 7-day course of augmentin with start date of 04/05 per pharmacy records following the augmentin he had severe, frequent liquid stools; was dx with c diff on 04/19 and treated with 10-day course of PO vanco states stools normalized after taking PO vanco then, 1-2 days prior to this hospital stay, he had liquid stools again (which then stopped following admission) denies h/o Crohn's disease or UC he denies changes in appetite or weight loss active person [place] [employer] much of [place] Review of Systems Review of Systems: gen - no fevers or chills cv - no cp pulm - no cough or dyspnea GI - no abd pain today; mild bloating remains but no N/V since NG tube came out Physical Exam Physical Exam: gen - WD, WN, NAD, pleasant mouth - MMM neck - no JVD heart - RRR, s1 s2, no murmur lungs - CTA b/l abd - mild distension but NT, BS+, no HSM ext - no edema, pulses 2+ b/l Results & Data Results & Data Vital Signs (Past 12 Hours) Vital Signs Temp Pulse Resp BP Pulse Ox O2 Del Method 05/12/22 07:04 36.6 C 65 18 132/81 96 Room Air Laboratory Results Laboratory Results - last 24 hr 05/12/22 05/12/22 05/12/22 08:38 08:38 08:38 WBC 5.69 RBC 4.58 L Hgb 14.6 Hct 42.6 MCV 93.0 MCH 31.9 MCHC 34.3 RDW Std Deviation 46.5 H RDW Coeff of [place] 13.7 Plt Count 200 MPV 10.0 Immature Gran % (Auto) 0.2 Neut % (Auto) 67.4 Lymph % (Auto) 16.2 [place] % (Auto) 14.6 Eos % (Auto) 0.7 Baso % (Auto) 0.9 Neut # (Auto) 3.84 Lymph # (Auto) 0.92 L [place] # (Auto) 0.83 H Eos # (Auto) 0.04 Baso # (Auto) 0.05 Immature Gran # (Auto) 0.01 VBG pH 7.39 VBG pCO2 38 VBG pO2 65 VBG HCO3 23 VBG O2 Saturation 95.2 VBG Base Excess -1.7 Sodium 140 Potassium 3.8 Chloride 112 H Carbon Dioxide 23 Anion Gap 5 BUN 11 Creatinine 0.63 Est Cr Clr Drug Dosing 111.0 Est GFR ( Amer) 114.9 Est GFR (Non-Af Amer) 99.1 BUN/Creatinine Ratio 17.5 Glucose 94 Calcium 7.7 L Magnesium 1.9 Total Bilirubin 1.4 H Direct Bilirubin 0.3 H AST 17 ALT 17 Alkaline Phosphatase 63 Total Protein 6.0 Albumin 3.6 Diagnostic Findings KUB X-Ray 05/12/22 07:00 KUB CLINICAL HISTORY: f/u SBO COMPARISON STUDY: CT of the abdomen and pelvis and KUB May 11, 2022. FINDINGS: The tip of the nasogastric tube projects over the gastric cardia. The tube could be advanced an additional 6 cm. Small amount of residual contrast within the bladder is present. Several loops of mildly dilated small bowel are present. These have decreased since CT of May 11, 2022. IMPRESSION: 1. Findings suggestive of a persistent partial small bowel obstruction. Small bowel dilatation decreased since prior CT. 2. Tip of nasogastric tube projects over the gastric cardia. The tube could be advanced an additional 6 cm. ACT 112: Negative or not required by law. Electronically signed by: Ryan Cameron M.D. 05/12/2022 12:05 PM PG Care Time/CCT Total # of Minutes Spent Total Time Spent with Patient: Total time spent is greater than 50% in coordination of care (as documented) at patient's floor/unit and/or counseling patient: Coding Level of Care Code 37076 SUB INP/OBS CARE 2/35MIN Diagnoses SBO (small bowel obstruction) K56.609 C. difficile colitis A04.72 Vomiting R11.2 Nausea presence: with nausea Vomiting type: unspecified Elevated bilirubin R17 BPH NOS w ur obs/LUTS N40.1 (3) Vomiting Nausea presence: with nausea Vomiting type: unspecified Qualified Code(s): R11.2 - Nausea with vomiting, unspecified
[2022-05-12] MEDS: ENOXAPARIN INJ 40 MG/0.4 ML SYR SQ SCH (20:16)
[2022-05-13 08:42] LABS: Basophils # (auto) 0.03 K/uL (0-0.2); Basophils % (auto) 0.6 %; Eosinophils # (auto) 0.13 K/uL (0-0.50); Eosinophils % (auto) 2.7 %; Hematocrit (blood only) 42.7 % (42.0-52.0); Immature Granulocytes # (auto) 0.01 K/uL (0.01-0.20); Immature Granulocytes % (auto) 0.2 %; Lymphocytes # (auto) 0.94 K/uL (1.2-3.4); Lymphocytes % (auto) 19.3 %; Mean Corpuscular Hemoglobin 31.9 pg (25.0-34.0); Mean Corpuscular Hgb Conc 35.1 g/dL (32.0-36.0); Mean Corpuscular Volume 90.9 fL (80.0-100.0); Mean Platelet Volume 9.8 fL (9.4-12.4); Monocytes # (auto) 0.67 K/uL (0.11-0.59); Monocytes % (auto) 13.8 %; Neutrophils # (auto) 3.08 K/uL (1.40-6.50); Neutrophils % (auto) 63.4 %; Platelet Count 202 K/uL (130-400); RDW Coefficient of Variation 13.2 % (11.5-14.5); RDW Standard Deviation 44.7 fL (36.4-46.3); White Blood Count 4.86 K/ul (4.8-10.8)
[2022-05-13 09:03] LABS: BUN Creatinine Ratio 14.8 (10-20); Creatinine Clr Calc Pharmacy 114.7 ml/min; Est GFR (African American) 116.5 ml/min; Est GFR (Non-African American) 100.5 ml/min; Potassium 3.7 mmol/L (3.5-5.1)
--- NOTE | 2022-05-13 10:37 | Surgery Progress Note ---
Date of Service May 13, 2022 Assessment & Plan (1) SBO (small bowel obstruction): Plan: Resolved. Because the patient does not have a h/o surgery, we will move forward with SBFT to see if there is a suspicious mass or internal mechanical cause of potential obstruction. I did discuss this case with the hospitalist. The patient mentions today that he has had some lower abdominal pain off an on followed by a greasy/oily stool that then relieves the abdominal pain. Outpatient colonoscopy recommended with intubation of the terminal ileum if possible for evaluation. The patient is coming due for his routine screening colonoscopy. KUB is planned for today. Will f/u results. If no surgical findings, the patient may have his diet continued, advance as tolerated and be discharged if no other medical concerns to follow up with GI. Admission and Anticipated Discharge Date Admission Date: May 11, 2022 Subjective Patient is asymptomatic and has been tolerating liquid oral intake. He denies N/V, abdominal pain, fevers and chills. Physical Exam Constitutional: healthy appearing; no acute distress, not ill appearing and no altered mental status Respiratory: normal respiratory effort; no respiratory distress, no labored breathing, does not use accessory muscles and no cough Gastrointestinal (Abdomen): Inspection/Auscultation: abdomen normal to inspection and normal bowel sounds; abdomen not distended Percussion/Palpation: abdomen soft; abdomen nontender, no guarding and abdomen not rigid Results & Data Vital Signs (Past 12 Hours) Vital Signs Temp Pulse BP Pulse Ox O2 Del Method 05/13/22 00:00 36.7 C 61 136/81 94 Room Air Laboratory Results No leukocytosis or significant metabolic derrangements PG Care Time/CCT Total # of Minutes Spent Total Time Spent with Patient: Total time spent is greater than 50% in coordination of care (as documented) at patient's floor/unit and/or counseling patient: Coding Level of Care Code 39864 SUB INP/OBS CARE 2/35MIN Diagnoses SBO (small bowel obstruction) K56.609
[2022-05-13] MEDS: FAMOTIDINE 20 MG in SYRINGE 3 ML IV SCH (10:43)
--- NOTE | 2022-05-13 11:48 | Fluoroscopy Report ---
[place] small bowel follow through CLINICAL HISTORY: 71 years-old Male with ?SBO with distal transition point?. Follow up study in a pa tient with small bowel obstruction TECHNIQUE: Oral barium was administered to the patient and serial radiographs of the abdomen were pe rformed. COMPARISON STUDY: KUB 05/12/2022, CT abdomen and pelvis 05/11/2022 FLUOROSCOPY TIME: 0.7 minutes. 12 images were submitted. 85.94 mGy. FINDINGS: Pepper Picker radiograph of the abdomen demonstrates a few persistent dilated loops of small bowel measuring up to approximately 3.6 cm within the abdominal left upper quadrant. Upon the administration of oral barium contrast, there is prompt opacification of the gastric lumen a nd proximal small bowel. Transit to the large bowel occurred at approximately 20 minutes. Subsequen tly, spot fluoroscopic images of the abdomen were obtained and demonstrate freely movable bowel in al l four abdominal quadrants. The terminal ileum appears unremarkable. IMPRESSION: There is mild persistent small bowel dilation, however enteric contrast demonstrates tra nsit to the large bowel within approximately 20 minutes. Findings are compatible with resolution of t he previously described small bowel obstruction. ACT 112: Negative or not required by law. The above report was generated using voice recognition software. It may contain grammatical, syntax o r spelling errors. Electronically signed by: Regino Lerma M.D. 05/13/2022 11:46 AM
[2022-05-13] MEDS: ENOXAPARIN INJ 40 MG/0.4 ML SYR SQ SCH (19:59)
--- NOTE | 2022-05-13 20:56 | Hospitalist Progress Note ---
Date of Service May 13, 2022 Assessment & Plan (1) SBO (small bowel obstruction): Plan: Resolved clinically & radiographically. Can advance diet to low fiber. UGI series with SBFT wnl today. Appreciate gen surg recommendations. Can stop IV fluids. I did an extensive literature search - no direct correlation between recent c diff infection and development of SBO. There are reports of people with ileostomy or Crohn's disease or other chronic GI tract disorders/abnormal anatomy developing small bowel enteritis from c diff. However, no reports of SBO as complication of straight-forward c diff infection. Corresponded informally with 2 GI providers who report never seeing SBO in the setting of C diff infection; however, perhaps he had a small bowel ileus from his recent c diff??. Further, with concern for a transition point seen on CT, this would argue for a specific nidus causing the SBO (adhesion, intrinsic bowel lesion, etc). It is concerning that he developed the SBO despite no past h/o intra-abdominal surgery. Again upper GI series with SBFT was wnl today. Will ask Alanna GLEASON to see in am. Patient is due to colonoscopy. Should he also have a push enteroscopy down the line to look for small bowel lesions? Other? Observe overnight and hopefully can d/c in am. (2) C. difficile colitis: Plan: c diff gene + but toxin negative earlier in March but did receive 10-day course of PO vanco with resolution of diarrhea. Despite toxin negative status his clinical picture was quite c/w c diff infection (course of augmentin followed by SEVERE diarrhea illness). he remains c diff gene + but again toxin negative here. he did have several liquid stools following his upper GI series but this was likely due to the contrast and the osmotic effect from such. hold off on retreatment for "relapse" unless he continues with severe diarrhea, symptoms/signs of illness/active infection, etc. see #1 for additional information. cont contact precautions. labs in am. (3) Vomiting: Plan: 2nd #1 resolved (4) Elevated bilirubin: Plan: Chronic. highly suggestive of Gilbert's syndrome. direct bili is wnl - also suggestive of Gilbert's. no Rx needed. (5) BPH NOS w ur obs/LUTS: Plan: patient reports heavily bothersome LUTS unfortunately he was intolerant of alpha blockers in the past could consider finasteride or similar but defer to outpatient providers recent CT a/p with large prostate and signs of chronic bladder outlet obstruction Plan DVT Prophylaxis: Lovenox SQ updated pt's daughter Cruz at bedside today of note - last colonoscopy was 09/2012 - no polyps, diverticulosis only, repeat advised 10 years will recommend he have another one in light of #1, #2 later this spring hopefully home tomorrow Admission and Anticipated Discharge Date Admission Date: May 11, 2022 Subjective no events overnight tolerating clears underwent upper GI series with SBFT -- no abnormal anatomy or SBO detected; contrast flowed to the colon in a normal fashion following his test he had 4 liquid BMs despite such he "Feels good" and has an appetite does not feel ill no N/V no abd pain no respiratory symptoms Review of Systems Review of Systems: gen - no fevers or chills cv - no cp pulm - no dyspnea or cough Physical Exam Physical Exam: gen - WD, WN, NAD, pleasant, sitting in chair mouth - MMM neck - no JVD heart - RRR, s1 s2, no murmur lungs - CTA b/l abd - soft, NT, BS+, ND, no HSM ext - no edema, pulses 2+ b/l Results & Data Results & Data Vital Signs (Past 12 Hours) Vital Signs Temp Pulse Pulse Resp BP Pulse Ox O2 Del Method 05/13/22 16:07 36.5 C 56 L 12 127/77 98 Room Air 05/13/22 11:58 36.7 C 56 L 137/80 99 Room Air Laboratory Results Laboratory Results - last 24 hr 05/11/22 05/13/22 05/13/22 19:27 08:23 08:23 WBC 4.86 RBC 4.70 Hgb 15.0 Hct 42.7 MCV 90.9 MCH 31.9 MCHC 35.1 RDW Std Deviation 44.7 RDW Coeff of [place] 13.2 Plt Count 202 MPV 9.8 Immature Gran % (Auto) 0.2 Neut % (Auto) 63.4 Lymph % (Auto) 19.3 [place] % (Auto) 13.8 Eos % (Auto) 2.7 Baso % (Auto) 0.6 Neut # (Auto) 3.08 Lymph # (Auto) 0.94 L [place] # (Auto) 0.67 H Eos # (Auto) 0.13 Baso # (Auto) 0.03 Immature Gran # (Auto) 0.01 Sodium 140 Potassium 3.7 Chloride 108 H Carbon Dioxide 26 Anion Gap 6 BUN 9 Creatinine 0.61 Est Cr Clr Drug Dosing 114.7 Est GFR ( Amer) 116.5 Est GFR (Non-Af Amer) 100.5 BUN/Creatinine Ratio 14.8 Glucose 90 Calcium 8.0 L Urine Legionella Ag SEE NOTE PG Care Time/CCT Total # of Minutes Spent Total Time Spent with Patient: Total time spent is greater than 50% in coordination of care (as documented) at patient's floor/unit and/or counseling patient: Coding Level of Care Code 94884 SUB INP/OBS CARE 2/35MIN Diagnoses SBO (small bowel obstruction) K56.609 C. difficile colitis A04.72 Vomiting R11.2 Nausea presence: with nausea Vomiting type: unspecified Elevated bilirubin R17 BPH NOS w ur obs/LUTS N40.1 (3) Vomiting Nausea presence: with nausea Vomiting type: unspecified Qualified Code(s): R11.2 - Nausea with vomiting, unspecified
--- NOTE | 2022-05-13 23:35 | Electrocardiogram Report ---
Test Reason : Blood Pressure : / mmHG Vent. Rate : 075 BPM Atrial Rate : 075 BPM P-R Int : 190 ms QRS Dur : 120 ms QT Int : 396 ms P-R-T Axes : 027 -77 060 degrees QTc Int : 442 ms Normal sinus rhythm Left anterior fascicular block Possible Anteroseptal infarct , age undetermined Abnormal ECG No previous ECGs available Confirmed by Rakesh Silva ([id number]) on 05/13/2022 11:34:47 PM Referred By: Lyric Galindo Confirmed By:Rakesh Silva
[2022-05-14 07:54] LABS: BUN Creatinine Ratio 11.3 (10-20); Calcium 8.1 mg/dl (8.5-10.1); Creatinine Clr Calc Pharmacy 112.8 ml/min; Est GFR (African American) 115.7 ml/min; Est GFR (Non-African American) 99.8 ml/min; Magnesium 1.9 mg/dl (1.7-2.4); Potassium 3.5 mmol/L (3.5-5.1)
[2022-05-14] MEDS: FAMOTIDINE 20 MG in SYRINGE 3 ML IV SCH (09:05)
--- NOTE | 2022-05-14 13:11 | Gastrointestinal Consultation ---
Date of Consultation May 14, 2022 Assessment & Plan (1) Diarrhea of infectious origin: C-diff gene +/toxin (-). During last admission episode of diarrhea, improved on Vancomycin. During this episode of diarrhea, improved w/o Vancomycin or antidiarrheals. Inflammation present - high fecal calprotectin in Feb can be secondary to enteritis vs less likely IBD. (2) Abnormal CT scan, gastrointestinal tract: Most likely secondary to non specific enteritis. Because pt was continuing to pass BMs - no obstruction. Plan - No need to tx C-diff w vanco or other. - Needs OP colonoscopy to r/o IBD, other abnormalities. Our office will reach out to the pt to arrange w Dr. Johnson per the pt's preference. Supervising Physician Co-Signing Physician Notes I performed a history and physical examination of the patient today, including specifically on physical exam - soft abdomen. I have discussed the patient's management with the advanced practitioner. Please refer to the nurse practitioner's note for the documented findings and plan of care. Colonoscopy as OP. Work up for diarrhea to be completed as OP, meanwhile use PRN antidiarreals. No need for PO Vanc. History of Present Illness Reason for Consultation: Recent c diff infection, then SBO Requesting Physician: Dr. Nieves Attending Physician: Flex Carlson History of Present Illness Mr. Tiago Melendez is a 71 yr old male pt of Dr. Naranjo w a hx of BPH, UTIs, osteoporosis, who experienced diarrhea while being on antibiotics for a URI during in the last week of March. At that time, stools for C-diff were gene (+)/toxin (-) but he was impirically tx w vancomycin x 10 days with resolution of the diarrhea. However, on 05/10, diarrhea returned, again severe, passing about 10 liquid BMs/day and he presented to the ED again, stool was again C-diff Gene +/toxin -. He also underwent CT scan (as an OP on 05/11) w suggestion of an SBO. Because of this finding, he was admitted. Pt tell me that he continued to pass diarrhea and gas at the time of the CT. This time, vancomycin was not used and diarrhea improved even w/o antidiarrheals, now passing about 3 small loose/liquid BMs in the past 24 hrs. Regarding N/V, he has had some low grade nausea and during this admission, when CT suggested obstruction, he gagged and vomited a large amt and instantly "felt better." Minimal NG drainage after the NG was placed. It has since been removed. He underwent small bowel series w mild persistent small bowel dilation w/o obstruction as contrast reached the large bowel. He has previously had GI care from [facility] including an EGD for GERD in 2019. Of note, the duodenum appeared normal. He tells me that he has had colonoscopy previously, but not recently and I am unable to find records of that. He would like to change gastroenterology providers to [facility] as his has had favorable care previously from Dr. Johnson. He is seen/examined while sitting up in a chair. He appears well. Allergies Allergy/AdvReac Type Severity Reaction Status Date / Time No Known Allergies Allergy Verified 05/11/22 16:17 Home Medications Medication Instructions Recorded Confirmed Type ascorbic acid (vitamin C) 500 mg 500 mg PO QPM 11/25/17 05/11/22 History tablet (Vitamin C) lutein 6 mg tablet 6 mg PO DAILY 11/25/17 05/11/22 History multivitamin 1 tab PO QDL 11/25/17 05/11/22 History omega 2-nqe-paz-fish oil 1,000 mg 1,000 mg PO QDL 11/25/17 05/11/22 History (120 mg-180 mg) capsule (Fish Oil) fluticasone propionate 50 1 sprays intranasal HS 03/31/19 05/11/22 History mcg/actuation nasal spray,suspension hydroxyzine pamoate 25 mg capsule 25 mg PO HS PRN Itching 04/06/19 05/11/22 History (Vistaril) methylcellulose (with sugar) oral 1 tbsp PO QAM 04/06/19 05/11/22 History powder (Citrucel (sucrose) oral powder) [id number] comb 40 1 cap PO BID 01/14/20 05/11/22 History mg-17 mcg-10 mg-63 mg-33mg capsule (Urinozinc Prostate Formula) cholecalciferol (vitamin D3) 50 2,000 unit PO DAILY 10/23/20 05/11/22 History mcg (2,000 unit) tablet mecobalamin (vitamin B12) 1,000 1,000 mcg sublingual DAILY 10/23/20 05/11/22 History mcg disintegrating tablet,sublingual calcium carbonate 600 mg calcium 600 mg PO BID 01/12/22 05/11/22 History (1,500 mg) tablet (Calcium) iurcaifd-gha-zlsggs 5 mg-zeaxanth 1 cap PO DAILY 01/12/22 05/11/22 History 1 mg-bilberry 7.5 mg-herbal capsule (Macular Health Formula) tadalafil 5 mg tablet 5 mg PO DAILY #30 tabs 02/17/22 05/11/22 Rx Lactobacillus acidophilus 1 1,000 mmu cells PO DAILY #30 caps 04/19/22 05/11/22 Rx billion cell capsule aspirin 81 mg tablet,delayed 81 mg PO DAILY 05/11/22 05/11/22 History release Patient History Medical History Allergic rhinitis BPH (benign prostatic hyperplasia) C. difficile colitis (~03/2022) Cyst of finger GERD (gastroesophageal reflux disease) Hypotension Low back pain bulging lumbar disc Near syncope Osteoarthritis Osteoporosis Osteopenia on a bone density summer 2020 T-score of -2.1 Right wrist pain Sensorineural hearing loss of both ears Sleep apnea mild, no device Superficial thrombophlebitis lower right leg Using aspirin 81 mg daily Testicular pain Tinnitus, bilateral Surgical History H/O colonoscopy History of esophagogastroduodenoscopy (EGD) History of removal of cyst left hand, on finger---under local Family History Mother Hypertension Brother Macular degeneration Grandfather (Maternal) Family history of diabetes mellitus Family hx of colon cancer Other No family history of adverse response to anesthesia Denies family history of Ovarian cancer Prostate cancer Myocardial infarction Breast cancer Social History Smoking Status: Never smoker Second Hand Exposure: Yes (Pt stated this was a long time ago); Do You Dip or Chew Tobacco: No; Tobacco Cessation Education Requested by Patient: No Hx Alcohol Use: Yes Alcohol type: beer and wine Alcohol Intake Frequency Comment: 1/day Hx Substance Use: No Preferred Language: Sami Communication Ability: Effective Visual Impairment: No Limitations Hearing Ability: Normal Cell Inspector Required: No Beliefs That Will Affect Care: None marital status: Current Living Situation: Spouse current occupational status: retired Other Information That Helps Us Care for You: No Feels Safe at Home: Yes Safety Concerns: Feels Safe At This Time Childhood Exposure to Second-Hand Smoke: Yes Dental Care, Regularly: Yes Physical Activity Frequency: Daily Physical Activity Frequency Comment: walk or back exercises Seatbelt Use: always Sunscreen Use: Yes Assistive Devices: None Review of Systems Review of Systems: ROS: Gen: Denies weakness, fevers, weight loss Eyes: No eye redness, or pain, no recent vision changes Resp: No SOB, no cough Cardio: No palpitations/irregular beats, no chest pain GI: Abd pain mostly resolved; had nausea, one episode of vomiting while NG was being placed. : Chronic difficulty urinating and frequent urinating due to BPH but Denies pain on urination Skin: No jaundice, itching or new rashes Physical Exam Constitutional: WD/WN, vitals as above Eyes: PERRL, conjunctivae normal, anicteric sclerae ENMT: external ear and nose normal, oropharynx normal Neck: trachea midline, no thyromegaly Respiratory: normal respiratory effort, lungs clear to auscultation Cardiovascular: RRR, no murmur, no edema Gastrointestinal (Abdomen): normal bowel sounds, soft, nontender, no hepat osplenomegaly Musculoskeletal: no cyanosis or clubbing, extremities motor strength 5/5 Skin: no rashes, warm and dry Neurologic: PERRL, EOMI, accommodation nl, no face palsy, no dysarthria Psychiatric: A+Ox3, euthymic affect Lymphatic: no cervical or axillary lymphadenopathy Results & Data Vital Signs (Past 12 Hours) Vital Signs Temp Pulse Resp BP Pulse Ox O2 Del Method 05/14/22 07:57 36.6 C 61 16 158/89 H 97 Room Air Laboratory Results Na 141, K3.5, Cl 108, CO2 27, BUN 7, Cr 0.62, glucose 62. CBC normal 05/13/22. LFTs, Lipase normal 05/11-. Diagnostic Findings CTAP w IV 05/11/22: 1. . Findings are consistent with small bowel obstruction. A transition point is suggested in the right pelvis and this may be related to adhesions. Clinical correlation will be required. 2. Liquid stool seen throughout the colon. There is no colonic wall thickening or surrounding inflammation. 3. Moderate to advanced colonic diverticulosis without CT evidence of acute diverticulitis. 4. No intraperitoneal free air is identified. No thick-walled bowel loops are identified. There is no pneumatosis intestinalis or portal venous gas. 5. There are bilateral inguinal hernias. A segment of small bowel pooches into the right internal hernia. This does not represent the site of obstruction. Small Bowel Series 05/13/22: There is mild persistent small bowel dilation, however enteric contrast demonstrates transit to the large bowel within approximately 20 minutes. Findings are compatible with resolution of the previously described small bowel obstruction.
--- NOTE | 2022-05-14 16:09 | Discharge Summary ---
Date of Service May 14, 2022 Admission HPI Per Admitting Provider 71yo male with PMHx significant for GERD, BPH, ED, hearing loss, NO PRIOR ABDOMINAL SURGERIES, recent cdiff gene testing presented after instruction of PCP for abdominal pain/nausea and found to have a small bowel obstruction and sent to ER for further eval. Recent events -- 04/19/22 presented to PCP w/ URI illness w/ fever/diarrhea/cough (COVID/FLU/RSV negative) and treated with Augmentin (HOWEVER PATIENT DOES NOT RECALL ANY ABX OUTSIDE OF PO VANCOMYCIN) and +cdiff gene (also noted slight elevated stool calprotectin) and completed 10 days PO Vancomycin on 04/29. Symptoms improved from that time but then last evening, developed diarrhea w/ generalized abdominal cramping/discomfort. Constant/mild in nature w/ 6-10 BMs in the past day with 1 episode of fecal incontinence. Diarrhea murky liquid/urgency but without blood or mucus. He reports sister/family with IBS but no crohns/colitis that he recalls. Typically when he has diarrhea symptoms cramping is resolved with a bowel movement. He reports last BM on arrival to ER, consistent w/ same color currently draining from NGT. Last meal last evening, ham pot pie. Mild nausea on arrival but no vomiting (exception until seen in ER w/ placement of NGT), which he reports has had significant improvement since placement but does note this to be uncomfortable/irritating. He notes he NEVER had any true PAIN, just cramping sensation. No night sweats/unexplained weight loss but he did report feeling cold last evening which is unusual for him. Last c-scope about 10 years ago and states he got a letter he is due but his PCP said based on current situation this may need to be moved up. In ER, already seen by general surgery. CTAP c/w SBO, transition point R pelvis and hoping to manage conservatively. Patient's daughter is Cruz, employee in [employer] department. He is ok w/ updating her with any questions/concerns. Discharge Exam gen - WD, WN, NAD, pleasant, sitting in chair mouth - MMM neck - no JVD heart - RRR, s1 s2, no murmur lungs - CTA b/l abd - soft, NT, BS+, ND, no HSM ext - no edema, pulses 2+ b/l Discharge Data Allergies Allergy/AdvReac Type Severity Reaction Status Date / Time No Known Allergies Allergy Verified 05/11/22 16:17 Consultations 05/11/22 14:51 Consult General Surgery Stat 05/11/22 15:31 ED Decision to Admit Stat 05/14/22 09:48 Consult Gastroenterology Routine Ordered Studies 05/13/22 08:40 FL small bowel follow through Urgent Hospital Course (1) SBO (small bowel obstruction): Resolved clinically & radiographically. Can advance diet to low fiber. UGI series with SBFT wnl today. Appreciate gen surg recommendations. Can stop IV fluids. I did an extensive literature search - no direct correlation between recent c diff infection and development of SBO. There are reports of people with ileostomy or Crohn's disease or other chronic GI tract disorders/abnormal anatomy developing small bowel enteritis from c diff. However, no reports of SBO as complication of straight-forward c diff infection. Corresponded informally with 2 GI providers who report never seeing SBO in the setting of C diff infection; however, perhaps he had a small bowel ileus from his recent c diff??. Further, with concern for a transition point seen on CT, this would argue for a specific nidus causing the SBO (adhesion, intrinsic bowel lesion, etc). It is concerning that he developed the SBO despite no past h/o intra-abdominal surgery. Again upper GI series with SBFT was wnl today. [facility]. Patient is due to colonoscopy. Should he also have a push enteroscopy down the line to look for small bowel lesions? Other? Observe overnight and hopefully can d/c in am. (2) C. difficile colitis: c diff gene + but toxin negative earlier in March but did receive 10-day course of PO vanco with resolution of diarrhea. Despite toxin negative status his clinical picture was quite c/w c diff infection (course of augmentin followed by SEVERE diarrhea illness). he remains c diff gene + but again toxin negative here. he did have several liquid stools following his upper GI series but this was likely due to the contrast and the osmotic effect from such. hold off on retreatment for "relapse" unless he continues with severe diarrhea, symptoms/signs of illness/active infection, etc. see #1 for additional information. cont contact precautions. labs in am. (3) Vomitinnd #1 resolved (4) Elevated bilirubin: Chronic. highly suggestive of Gilbert's syndrome. direct bili is wnl - also suggestive of Gilbert's. no Rx needed. (5) BPH NOS w ur obs/LUTS: patient reports heavily bothersome LUTS unfortunately he was intolerant of alpha blockers in the past could consider finasteride or similar but defer to outpatient providers recent CT a/p with large prostate and signs of chronic bladder outlet obstruction Plan DVT Prophylaxis: Lovenox SQ updated pt's daughter Cruz at bedside today of note - last colonoscopy was 09/2012 - no polyps, diverticulosis only, repeat advised 10 years will recommend he have another one in light of #1, #2 later this spring hopefully home tomorrow Discharge Plan Discharge Items Patient Disposition: Home - Self-Care Reason For Visit: SBO (Small Bowel Obstruction) Discharge Diagnosis: 1. partial small bowel obstruction vs "ileus" - resolved 2. recent c diff infection 3. BPH (enlarged prostate) Activity: Resume your previous activity Non-emergency contact: Primary Care Provider and Sheriff Detective Call non-emergency contact if: you have any medication questions and your symptoms worsen Follow-up/Referrals: Zoe Purdy MD [Primary Care Provider] - (1 week) Ranjan Mccoy MD [Physician] - ([facility] will be calling with appointment dates/times) Diet: Low Fiber Addtl Attending Provider Instructions: Mr Melendez, You were admitted to [facility] after an outpatient CT scan of your abdomen showed a partial small bowel obstruction. You were treated with an NG tube, IV fluids, and bowel rest. The partial small bowel obstruction (or ileus) resolved with the above measures. The general surgeons saw you in consult and provided aguirre recommendations for your care. They advised an upper GI series with small bowel follow-through. This showed that your small intestine was anatomically normal and that the previous partial small bowel obstruction was resolved. We did not see any stricture (narrowing of the small bowel), tumor/mass-like structures, etc. You were resumed on a diet and this was advanced to low fiber. You tolerated the low fiber diet well. Alanna GLEASON saw you in consult to review the recent GI problems and to make additional recommendations. They are advising upper & lower endoscopies to ensure nothing else is present that would have contributed to your recent GI illness. Although your c diff gene test remains positive we are not recommending re- treating any c diff infection. You do not need to take any special precautions at home or in the community despite testing positive for the c diff gene. Recommendations - 1. low fiber diet for about 10 days (see handout). 2. hold your Citrucel or any spnk-gqf-xibgdql fiber supplement for at least 10 days. 3. follow-up with your family doctor within 1 week. 4. follow-up with Alanna GLEASON in the near-future for endoscopies - they will arrange these. Return to [facility] if - * you have fevers over 100 degrees * you have worsening abdominal pain * you have severe nausea/vomiting * you develop severe diarrhea, especially if it is similar to when you had C diff infection in March * any other concerns It was our pleasure to care for you! -Dr Carlson Pending Studies at Discharge: No Stand-Alone Forms: My [facility], Smoking Cessation Medications and DC Order Prescriptions: Continued Urinozinc Prostate Formula [id number] bp-ibh-wh-mg-mg capsule 1 cap PO BID Lactobacillus acidophilus 1 billion cell capsule 1,000 mmu cells PO DAILY Qty: 30 0RF fluticasone propionate 50 mcg/actuation spray,suspension 1 sprays INTNAS HS cholecalciferol (vitamin D3) 50 mcg (2,000 unit) tablet 2,000 unit PO DAILY tadalafil 5 mg tablet 5 mg PO DAILY Qty: 30 11RF mecobalamin (vitamin B12) 1,000 mcg tablet,disintegrating 1,000 mcg sublingual DAILY Rx Instructions: place tablet under tongue and allow to dissolve for at least30 secs before swallowing calcium carbonate [Calcium 600] 600 mg calcium (1,500 mg) tablet 600 mg PO BID Macular Health Formula 5-1-7.5 mg capsule 1 cap PO DAILY multivitamin Tablet 1 tab PO QDL ascorbic acid (vitamin C) [Vitamin C] 500 mg Tablet 500 mg PO QPM omega 3-wio-uop-fish oil [Fish Oil] 1,000 mg (120 mg-180 mg) Capsule 1,000 mg PO QDL lutein 6 mg Tablet 6 mg PO DAILY hydroxyzine pamoate [Vistaril] 25 mg capsule 25 mg PO HS PRN (Reason: Itching) aspirin 81 mg Tablet,Delayed Release (Dr/Ec) 81 mg PO DAILY Discontinued Citrucel (sucrose) Powder 1 tbsp PO QAM Discharge Orders: Discharge Order (Routine); Ordered 05/14/22 Ordered By: Flex Carlson Admission Data Admit Date/Time: 05/11/22 16:39 Attending Provider: Flex Carlson Admit Provider: Flex Maurer Primary Care Provider: Zoe Purdy V. Other Providers: Roddy Fox ; Flex Maurer ; Ranjan Mccoy Coding Diagnoses SBO (small bowel obstruction) K56.609 C. difficile colitis A04.72 Vomiting R11.2 Nausea presence: with nausea Vomiting type: unspecified Elevated bilirubin R17 BPH NOS w ur obs/LUTS N40.1
== END 2022-05-14 17:33 | disposition home or self-care (01) | DRG 389 ==
LOC: ED 14:06 → 3N 16:39 → SUATTDRO 16:39 → 3N 19:20